=== PATIENT | male | born 1950 | race Caucasian/White ===

== ENCOUNTER → 2019-10-21 | Outpatient (CLI) | payer MEDICARE ==
[~2019-10-21] MED LIST: VALA500T4 PO; ZOLP10TA PO
== END | disposition home or self-care (01) ==
LOC: STAR 14:02
PROVIDERS: ATTEND Surgery
DX: Z01.818 Encounter for other preprocedural examination (principal); K40.90 Unilateral inguinal hernia, without obstruction or gangrene, not specified as recurrent; I51.7 Cardiomegaly; I45.2 Bifascicular block
CPT/HCPCS: 93005

== ENCOUNTER → 2019-10-24 | Outpatient (CLI) | payer MEDICARE | END | disposition home or self-care (01) | LOC: STAR 13:15 | PROVIDERS: ATTEND Anesthesiology | DX: Z01.812 Encounter for preprocedural laboratory examination (principal); Z20.828 Contact with and (suspected) exposure to other viral communicable diseases | CPT/HCPCS: 36415; 87635 ==

== ENCOUNTER 2019-10-28 05:54 | Day surgery (SDC) | payer MEDICARE ==
[~2019-10-28] VITALS: Ht 188 cm; Wt 97.0 kg
[2019-10-28] MEDS ORDERED: LACTATED RINGERS 1,000 ML IV SCH (06:39)
[2019-10-28] MEDS ORDERED: CHLORHEXIDINE 15 ML UDC MM ONE (07:00)
[2019-10-28] MEDS ORDERED: MIDAZOLAM 1 MG/ML, 2ML ONE (07:16)
[2019-10-28] MEDS ORDERED: FENTANYL PF 250 MCG/5ML ONE (07:16)
[2019-10-28] MEDS ORDERED: EPINEPHRINE 1 MG/ML, 1ML ONE (07:17)
[2019-10-28] MEDS ORDERED: BUPIVACAINE/PF 0.5% ONE (07:17)
[2019-10-28] MEDS ORDERED: LIDOCAINE GEL 2%, 5ML ONE (07:20)
[2019-10-28] MEDS ORDERED: DIPHENHYDRAMINE 50 MG/ML, 1ML IVPush PRN (07:30)
[2019-10-28] MEDS ORDERED: hydrALAzine 20 MG/ML, 1ML IV PRN (07:30)
[2019-10-28] MEDS ORDERED: MEPERIDINE/PF 25MG/0.5ML IVPush PRN (07:30)
[2019-10-28] MEDS ORDERED: HYDROcodone/APAP 7.5-325MG/15ML UDC PO PRN (07:30)
[2019-10-28] MEDS ORDERED: HYDROmorphone 1 MG/ML, 1ML INJ IVPush PRN (07:30)
[2019-10-28] MEDS ORDERED: LABETALOL 5MG/ML, 20ML IV PRN (07:30)
[2019-10-28] MEDS ORDERED: FENTANYL PF 100 MCG/2ML IV PRN (07:30)
[2019-10-28] MEDS ORDERED: HALOPERIDOL 5 MG/ML IV PRN (07:30)
[2019-10-28] MEDS ORDERED: PROMETHAZINE 25 MG/ML, 1ML IVPush PRN (07:30)
[2019-10-28] MEDS ORDERED: BUPIVACAINE/PF-EPI 0.5% 1:200K INFIL ONE (08:07)
[2019-10-28] MEDS ORDERED: KETOROLAC 30 MG/1 ML ONE (08:13)
[2019-10-28] MEDS ORDERED: NEOSTIGMINE 1 MG/ML, 10ML ONE (08:15)
[2019-10-28] MEDS ORDERED: ONDANSETRON 2MG/ML, 2ML ONE (08:15)
[2019-10-28] MEDS ORDERED: DEXAMETHASONE 4 MG/ML, 1ML ONE (08:15)
[2019-10-28] MEDS ORDERED: SUCCINYLCHOLINE 20 MG/ML, 10ML ONE (08:15)
[2019-10-28] MEDS ORDERED: ROCURONIUM 10MG/ML,5ML ONE (08:15)
[2019-10-28] MEDS ORDERED: PROPOFOL 10 MG/ML, 20ML ONE (08:15)
[2019-10-28] MEDS ORDERED: GLYCOPYRROLATE 0.2MG/1ML, 5ML ONE (08:15)
[2019-10-28] MEDS ORDERED: CEFAZOLIN 1,000 MG ONE (08:15)
[2019-10-28] MEDS ORDERED: ONDANSETRON 2MG/ML, 2ML IVPush PRN (08:30)
[2019-10-28] MEDS ORDERED: KETOROLAC 30 MG/1 ML IVPush PRN (08:30)
[2019-10-28] MEDS ORDERED: morphine SULFATE 10 MG/ML, 1ML IVPush PRN (08:30)
[2019-10-28] MEDS ORDERED: LABETALOL 5MG/ML, 20ML ONE (08:42)
[2019-10-28] MEDS ORDERED: OXYcodone 5 MG/5 ML ORAL.SOL UDC ONE (09:01)
[2019-10-28] MEDS ORDERED: hydrALAzine 20 MG/ML, 1ML ONE ×2 (09:01→09:23)
== END 2019-10-28 11:55 | disposition home or self-care (01) ==
LOC: OUT 05:54
PROVIDERS: ATTEND Surgery
DX: K40.30 Unilateral inguinal hernia, with obstruction, without gangrene, not specified as recurrent (principal); D17.6 Benign lipomatous neoplasm of spermatic cord; F12.90 Cannabis use, unspecified, uncomplicated; Z79.899 Other long term (current) drug therapy; Z87.891 Personal history of nicotine dependence; Z82.49 Family history of ischemic heart disease and other diseases of the circulatory system; Z83.3 Family history of diabetes mellitus; Z80.9 Family history of malignant neoplasm, unspecified
CPT/HCPCS: 49650; C1781; J0171; J0330; J0360; J0690; J1100; J1885; J2250; J2405; J2704; J2710; J3010; J7120